=== PATIENT | male | born 1970 | race Caucasian/White ===

== ENCOUNTER 2023-05-29 16:40 | Inpatient (IN) | payer BC ==
[2023-05-29] MEDS ORDERED: KETOROLAC 15 MG/ML 1 ML VIAL IVP STA (19:51)
[2023-05-29] MEDS ORDERED: SODIUM CHLORIDE 0.9% 1,000 ML IV STA (19:51)
[2023-05-29 21:11] LABS: Appearance,Urine Clear (Clear); Bilirubin,Urine Negative (Negative); Blood,Urine Small (Negative); Color,Urine Colorless; Glucose,Urine (UA) 4+ (Negative); Hyaline Casts,Urine 3 /lpf (0-2); Leukocyte Esterase,Urine Negative (Negative); Mucus,Urine Rare /hpf; Nitrite,Urine Negative (Negative); Protein,Urine 1+ (Negative); RBC,Urine 1 /hpf (0-5); Specific Gravity,Urine 1.021 (1.001-1.035); Squamous Epithelial Cell,Urine <1 /hpf (0-4); Urobilinogen,Urine <2.0 mg/dL (<2.0); WBC,Urine 1 /hpf (0-5)
[2023-05-29 21:14] LABS: Ketones,Urine 4+ (Negative)
[2023-05-29 22:02] LABS: Basophils % (A) 0 %; Eosinophils % (A) 0 %; HCT 53.2 % (39.0-53.0); HGB 17.2 gm/dL (13.0-17.5); Lymphocytes # (A) 0.8 k/uL (1.0-4.8); Lymphocytes % (A) 5 %; MCH 30.8 pg (25.0-35.0); MCHC 32.3 g/dL (31.0-37.0); MCV 95.4 fL (80.0-100.0); Monocytes # (A) 0.6 k/uL (0-1.0); Monocytes % (A) 4 %; Neutrophils # (A) 12.5 k/uL (1.3-7.7); Neutrophils % (A) 90 %; Platelet Count 374 k/uL (150-450); RBC 5.58 m/uL (4.30-5.90); RDW 13.4 % (11.5-15.5); WBC 13.9 k/uL (3.8-10.6)
[2023-05-29 22:24] LABS: ALT 17 U/L (4-49); AST 21 U/L (17-59); African American GFR (CKD) >90 (>60 ml/min/1.73 sqM); Albumin 4.4 g/dL (3.5-5.0); Alkaline Phosphatase 66 U/L (38-126); Amylase 51 U/L (30-110); Blood Urea Nitrogen 18 mg/dL (9-20); Calcium 8.9 mg/dL (8.4-10.2); Chloride 107 mmol/L (98-107); Glucose 144 mg/dL (74-99); Lipase 211 U/L (23-300); Non-African American GFR(CKD) 84 (>60 ml/min/1.73 sqM); Potassium 4.9 mmol/L (3.5-5.1); Sodium 135 mmol/L (137-145); Total Bilirubin 0.8 mg/dL (0.2-1.3); Total Protein 7.5 g/dL (6.3-8.2)
[2023-05-29 23:05] LABS: Carbon Dioxide <5 mmol/L (22-30)
[2023-05-29] MEDS ORDERED: SODIUM CHLORIDE 0.9% 2,000 ML IV STA (23:20)
[2023-05-29] MEDS ORDERED: SODIUM BICARB 8.4% 50 ML SYR (1 MEQ/ML) IV STA ×2 (23:22)
[2023-05-29] MEDS ORDERED: LORazepam 2 MG/ML INJ IV STA (23:48)
--- NOTE | 2023-05-30 00:11 | ED ---
Abdominal Pain HPI - General Source: patient Mode of arrival: ambulatory Limitations: no limitations <Hayley Law - Last Filed: 05/30/23 03:56> - History of Present Illness MD Complaint: abdominal pain -: days(s) Location: epigastric, suprapubic Radiation: epigastric, suprapubic Severity: severe Severity scale (1-10): 10 Consistency: constant Improves With: nothing Worsens With: nothing Associated Symptoms: nausea, vomiting, diarrhea, chills Treatments Prior to Arrival: other (0) <Damir Mcgarry - Last Filed: 05/31/23 21:22> - General Chief Complaint: Abdominal Pain Stated Complaint: poss Block intestine Time Seen by Provider: 05/29/23 19:22 - History of Present Illness Initial Comments: 53-year-old male with history of type 2 diabetes presenting with chief complaint of abdominal pain. Patient reports lower abdominal cramping pain. He states that this pain has been present for the last 2 months. Patient is concerned because he has not had a bowel movement in 5 days. He was sent by his PCP for concerns for bowel obstruction. Patient states that he was previously vomiting but has not recently been vomiting. No fevers. Admits to chills. No dysuria or hematuria. No chest pain or difficulty breathing (Hayley Law) 53 male to the emergency for evaluation of diabetes recent nausea vomiting, weakness. Also had some abdominal pain and concern for bowel obstruction. (Damir Mcgarry) - Related Data Home Medications Medication Instructions Recorded Confirmed Atorvastatin [Lipitor] 40 mg PO DAILY 05/30/23 05/30/23 Dulaglutide [Trulicity] 3 mg SQ SA 05/30/23 05/30/23 Ergocalciferol (Vitamin D2) 1,250 mcg PO SA 05/30/23 05/30/23 [Drisdol (50,000 Iu)] Ertugliflozin Pidolate [Steglatro] 5 mg PO DAILY 05/30/23 05/30/23 Omeprazole [PriLOSEC] 20 mg PO DAILY PRN 05/30/23 05/30/23 Ondansetron Odt [Zofran Odt] 4 mg PO Q6H PRN 05/30/23 05/30/23 Pioglitazone HCl 30 mg PO DAILY 05/30/23 05/30/23 amLODIPine [Norvasc] 10 mg PO DAILY 05/30/23 05/30/23 hydroCHLOROthiazide [Hydrodiuril] 12.5 mg PO DAILY 05/30/23 05/30/23 metFORMIN HCL 1,000 mg PO BID 05/30/23 05/30/23 Allergies Allergy/AdvReac Type Severity Reaction Status Date / Time No Known Allergies Allergy Verified 05/30/23 11:36 Review of Systems ROS Other: All systems not noted in ROS Statement are negative. <Hayley Law - Last Filed: 05/30/23 03:56> ROS Other: All systems not noted in ROS Statement are negative. <Damir Mcgarry - Last Filed: 05/31/23 21:22> ROS Statement: Those systems with pertinent positive or pertinent negative responses have been documented in the HPI. Past Medical History Past Medical History: Diabetes Mellitus History of Any Multi-Drug Resistant Organisms: None Reported Past Surgical History: Hernia Repair Additional Past Surgical History / Comment(s): Kidney, Past Psychological History: No Psychological Hx Reported Smoking Status: Never smoker Past Alcohol Use History: Occasional Past Drug Use History: Marijuana <Hayley Law - Last Filed: 05/30/23 03:56> General Exam Limitations: no limitations General appearance: alert, in no apparent distress Head exam: Present: atraumatic, normocephalic, normal inspection Eye exam: Present: normal appearance, EOMI Neck exam: Present: normal inspection, full ROM Respiratory exam: Present: normal lung sounds bilaterally. Absent: respiratory distress, wheezes, rales, rhonchi, stridor Cardiovascular Exam: Present: regular rate, normal rhythm, normal heart sounds. Absent: systolic murmur, diastolic murmur, rubs, gallop, clicks GI/Abdominal exam: Present: soft, tenderness. Absent: distended, guarding, rebound, rigid Neurological exam: Present: alert, oriented X3 Psychiatric exam: Present: normal affect, normal mood Skin exam: Present: warm, dry, intact, normal color. Absent: rash <Hayley Law - Last Filed: 05/30/23 03:56> General appearance: alert, in no apparent distress, anxious, lethargic, in distress Head exam: Present: atraumatic, normocephalic, normal inspection Eye exam: Present: normal appearance, PERRL, EOMI. Absent: scleral icterus, conjunctival injection, periorbital swelling ENT exam: Present: normal exam, mucous membranes dry Neck exam: Present: normal inspection. Absent: tenderness, meningismus, lymphadenopathy Respiratory exam: Present: normal lung sounds bilaterally. Absent: respiratory distress, wheezes, rales, rhonchi, stridor Cardiovascular Exam: Present: normal rhythm, tachycardia, normal heart sounds. Absent: systolic murmur, diastolic murmur, rubs, gallop, clicks GI/Abdominal exam: Present: soft, normal bowel sounds. Absent: distended, tenderness, guarding, rebound, rigid Extremities exam: Present: normal inspection, full ROM, normal capillary refill. Absent: tenderness, pedal edema, joint swelling, calf tenderness Back exam: Present: normal inspection Neurological exam: Present: alert, altered, oriented X3, CN II-XII intact Psychiatric exam: Present: normal affect, normal mood Skin exam: Present: warm, dry, intact, normal color. Absent: rash <Damir Mcgarry - Last Filed: 05/31/23 21:22> Course <Damir Mcgarry - Last Filed: 05/31/23 21:22> Vital Signs 05/29/23 05/29/23 05/30/23 17:06 22:14 06:23 Temperature 98.6 F 98.8 F Pulse Rate 121 H 101 H 95 Respiratory 22 18 18 Rate Blood Pressure 131/78 143/88 143/88 O2 Sat by Pulse 99 97 98 Oximetry 05/30/23 05/30/23 07:21 17:30 Temperature 98.2 F Pulse Rate 100 88 Respiratory 18 18 Rate Blood Pressure 124/84 139/82 O2 Sat by Pulse 97 97 Oximetry - Reevaluation(s) Reevaluation #1: Records reviewed (Damir Mcgarry) Reevaluation #2: Patient still remains short of breath, weak without much improvement (Damir Mcgarry) Reevaluation #3: Patient informed results questions answered (Damir Mcgarry) Reevaluation #4: Differential Weakness: Hypoglycemia, shock, sepsis, hyponatremia, anemia, infection, IA, ETOH, adverse medicine reaction, overdose, stroke, this is not meant to be an all-inclusive list. Differential Dyspnea: Coronary syndrome, arrhythmia, tamponade, asthma, COPD, pulmonary embolism, pneumonia, pneumothorax, pulmonary effusion, anaphylaxis, diabetic ketoacidosis, flailed chest, pulmonary contusion, diaphragmatic rupture, anemia, neuromuscular, this is not meant to be an all-inclusive list. Differential Altered Mental Status: Hypoglycemia, DKA, hypercapnia, ETOH, overdose, CO poisoning, trauma, myxedema coma, HTN encephalopathy, infection, encephalitis, psychosis, intercranial hemorrhage, hepatic encephalopathy, meningitis, CVA, this is not meant to be an all-inclusive list (Damir Mcgarry) Medical Decision Making - Lab Data Result diagrams: 05/29/23 19:50 05/29/23 19:50 <Hayley Law - Last Filed: 05/30/23 03:56> - Lab Data Result diagrams: 05/31/23 03:37 05/31/23 09:47 - Radiology Data Radiology results: report reviewed (CT of the abdomen and pelvis is negative for significant acute disease), image reviewed <Damir Mcgarry - Last Filed: 05/31/23 21:22> - Medical Decision Making Was pt. sent in by a medical professional or institution (, PA, LINEMAN APPRENTICE, urgent care, hospital, or senior care...) When possible be specific @ -No Did you speak to anyone other than the patient for history (EMS, parent, family, police, friend...)? What history was obtained from this source @ -No Did you review nursing and triage notes (agree or disagree)? Why? @ -I reviewed and agree with nursing and triage notes Were old charts reviewed (outside hosp., previous admission, EMS record, old EKG, old radiological studies, urgent care reports/EKG's, senior care records)? Report findings @ -No old charts were reviewed Differential Diagnosis (chest pain, altered mental status, abdominal pain women, abdominal pain men, vaginal bleeding, weakness, fever, dyspnea, syncope, headache, dizziness, GI bleed, back pain, seizure, CVA, palpatations, mental health, musculoskeletal)? @ -MDM Differential Abdominal Pain Men: Appendicitis, cholecystitis, diverticulosis, ischemic bowel, pancreatitis, hepatitis, UTI, gastroenteritis, AAA, incarcerated hernia, bowel obstruction, constipation, inflammatory bowel, hepatitis, peptic ulcer disease, splenic infarction, perforated viscus, testicular torsion... This is not meant to be an all-inclusive list EKG interpreted by me (3pts min.). @ -As above X-rays interpreted by me (1pt min.). @ -None done CT interpreted by me (1pt min.). @ -Mild right hydronephrosis secondary to a nonobstructing ureteral calculus. Nonobstructing distal left ureteral calculus with left-sided hydronephrosis. Fatty infiltration of the liver. U/S interpreted by me (1pt. min.). @ -None done What testing was considered but not performed or refused? (CT, X-rays, U/S, labs)? Why? @ -None What meds were considered but not given or refused? Why? @ -None Did you discuss the management of the patient with other professionals (professionals i.e. , PA, LINEMAN APPRENTICE, lab, RT, psych nurse, social worker assistant, manager ems, teacher, coastal/harbor defense officer, bilingual case manager)? Give summary @ -No Was smoking cessation discussed for >3mins.? @ -No Was critical care preformed (if so, how long)? @ -No Were there social determinants of health that impacted care today? How? (Homelessness, low income, unemployed, alcoholism, drug addiction, tra nsportation, low edu. Level, literacy, decrease access to med. care, halfway, rehab)? @ -No Was there de-escalation of care discussed even if they declined (Discuss DNR or withdrawal of care, Hospice)? DNR status @ -No What co-morbidities impacted this encounter? (DM, HTN, Smoking, COPD, CAD, Cancer, CVA, ARF, Chemo, Hep., AIDS, mental health diagnosis, sleep apnea, morbid obesity)? @ -Diabetes Was patient admitted / discharged? Hospital course, mention meds given and route, prescriptions, significant lab abnormalities, going to OR and other pertinent info. @ -53-year-old male presenting with chief complaint of lower abdominal pain, reports he has not had a bowel movement in a few days and his PCP is concerned for bowel obstruction. Patient tells me he has had lower abdominal pain for the last 2 months along with extreme fatigue. Physical examination is conducted. WBC 13.9. Patient is in metabolic acidosis with respiratory alkalosis. Carbon dioxide less than 5. Lactic acid 2.5. PH 7.23 pCO2 14 HCO3 6. Patient is treated with IV fluids and 100meq of bicarb. Urine shows 4+ glucose and 4+ ketones. Negative for salicylates, acetaminophen, and serum alcohol. Osmolality is WNL. Likely due to a combination of DKA, dehydration, alcohol. Labs are being redrawn. Patient is signed out to my attending Dr. Mcgarry for further management and disposition (Hayley Law) - Lab Data Lab Results 05/29/23 05/29/23 05/29/23 Range/Units 19:50 19:50 19:50 WBC 13.9 H (3.8-10.6) k/uL RBC 5.58 (4.30-5.90) m/uL Hgb 17.2 (13.0-17.5) gm/dL Hct 53.2 H (39.0-53.0) % MCV 95.4 (80.0-100.0) fL MCH 30.8 (25.0-35.0) pg MCHC 32.3 (31.0-37.0) g/dL RDW 13.4 (11.5-15.5) % Plt Count 374 (150-450) k/uL MPV 7.0 Neutrophils % 90 % Lymphocytes % 5 % Monocytes % 4 % Eosinophils % 0 % Basophils % 0 % Neutrophils # 12.5 H (1.3-7.7) k/uL Lymphocytes # 0.8 L (1.0-4.8) k/uL Monocytes # 0.6 (0-1.0) k/uL Eosinophils # 0.0 (0-0.7) k/uL Basophils # 0.0 (0-0.2) k/uL VBG pH (7.31-7.41) VBG pCO2 (37-51) mmHg VBG HCO3 (24-28) mmol/L Sodium 135 L (137-145) mmol/L Potassium 4.9 (3.5-5.1) mmol/L Chloride 107 (98-107) mmol/L Carbon Dioxide <5 L* (22-30) mmol/L Anion Gap mmol/L BUN 18 (9-20) mg/dL Creatinine 1.02 (0.66-1.25) mg/dL Est GFR (CKD-EPI)AfAm >90 (>60 ml/min/1.73 sqM) Est GFR (CKD-EPI)NonAf 84 (>60 ml/min/1.73 sqM) Glucose 144 H (74-99) mg/dL Osmolality (280-301) mosm/kg Lactic Ac Sepsis Rflx Plasma Lactic Acid Alec 2.5 H* (0.7-2.0) mmol/L Calcium 8.9 (8.4-10.2) mg/dL Phosphorus (2.5-4.5) mg/dL Magnesium (1.6-2.3) mg/dL Total Bilirubin 0.8 (0.2-1.3) mg/dL AST 21 (17-59) U/L ALT 17 (4-49) U/L Alkaline Phosphatase 66 (38-126) U/L Total Protein 7.5 (6.3-8.2) g/dL Albumin 4.4 (3.5-5.0) g/dL Amylase 51 (30-110) U/L Lipase 211 (23-300) U/L Urine Color Urine Appearance (Clear) Urine pH (5.0-8.0) Ur Specific [place] (1.001-1.035) Urine Protein (Negative) Urine Glucose (UA) (Negative) Urine Ketones (Negative) Urine Blood (Negative) Urine Nitrite (Negative) Urine Bilirubin (Negative) Urine Urobilinogen (<2.0) mg/dL Ur Leukocyte Esterase (Negative) Urine RBC (0-5) /hpf Urine WBC (0-5) /hpf Ur Squamous Epith Cells (0-4) /hpf Hyaline Casts (0-2) /lpf Urine Mucus (None) /hpf Salicylates mg/dL Acetaminophen ug/mL Serum Alcohol mg/dL 05/29/23 05/29/23 05/30/23 Range/Units 20:30 23:17 01:06 WBC (3.8-10.6) k/uL RBC (4.30-5.90) m/uL Hgb (13.0-17.5) gm/dL Hct (39.0-53.0) % MCV (80.0-100.0) fL MCH (25.0-35.0) pg MCHC (31.0-37.0) g/dL RDW (11.5-15.5) % Plt Count (150-450) k/uL MPV Neutrophils % % Lymphocytes % % Monocytes % % Eosinophils % % Basophils % % Neutrophils # (1.3-7.7) k/uL Lymphocytes # (1.0-4.8) k/uL Monocytes # (0-1.0) k/uL Eosinophils # (0-0.7) k/uL Basophils # (0-0.2) k/uL VBG pH (7.31-7.41) VBG pCO2 (37-51) mmHg VBG HCO3 (24-28) mmol/L Sodium (137-145) mmol/L Potassium (3.5-5.1) mmol/L Chloride (98-107) mmol/L Carbon Dioxide (22-30) mmol/L Anion Gap mmol/L BUN (9-20) mg/dL Creatinine (0.66-1.25) mg/dL Est GFR (CKD-EPI)AfAm (>60 ml/min/1.73 sqM) Est GFR (CKD-EPI)NonAf (>60 ml/min/1.73 sqM) Glucose (74-99) mg/dL Osmolality 294 (280-301) mosm/kg Lactic Ac Sepsis Rflx Y Plasma Lactic Acid Alec (0.7-2.0) mmol/L Calcium (8.4-10.2) mg/dL Phosphorus 2.6 (2.5-4.5) mg/dL Magnesium 1.9 (1.6-2.3) mg/dL Total Bilirubin (0.2-1.3) mg/dL AST (17-59) U/L ALT (4-49) U/L Alkaline Phosphatase (38-126) U/L Total Protein (6.3-8.2) g/dL Albumin (3.5-5.0) g/dL Amylase (30-110) U/L Lipase (23-300) U/L Urine Color Colorless Urine Appearance Clear (Clear) Urine pH 5.0 (5.0-8.0) Ur Specific [place] 1.021 (1.001-1.035) Urine Protein 1+ H (Negative) Urine Glucose (UA) 4+ H (Negative) Urine Ketones 4+ H (Negative) Urine Blood Small H (Negative) Urine Nitrite Negative (Negative) Urine Bilirubin Negative (Negative) Urine Urobilinogen <2.0 (<2.0) mg/dL Ur Leukocyte Esterase Negative (Negative) Urine RBC 1 (0-5) /hpf Urine WBC 1 (0-5) /hpf Ur Squamous Epith Cells <1 (0-4) /hpf Hyaline Casts 3 H (0-2) /lpf Urine Mucus Rare H (None) /hpf Salicylates <1.0 mg/dL Acetaminophen <10.0 ug/mL Serum Alcohol <10 mg/dL 05/30/23 05/30/23 05/30/23 Range/Units 01:06 01:42 04:55 WBC 14.8 H (3.8-10.6) k/uL RBC 5.14 (4.30-5.90) m/uL Hgb 15.7 (13.0-17.5) gm/dL Hct 49.0 (39.0-53.0) % MCV 95.3 (80.0-100.0) fL MCH 30.6 (25.0-35.0) pg MCHC 32.2 (31.0-37.0) g/dL RDW 13.4 (11.5-15.5) % Plt Count 383 (150-450) k/uL MPV 7.5 Neutrophils % 72 % Lymphocytes % 17 % Monocytes % 8 % Eosinophils % 0 % Basophils % 0 % Neutrophils # 10.7 H (1.3-7.7) k/uL Lymphocytes # 2.5 (1.0-4.8) k/uL Monocytes # 1.2 H (0-1.0) k/uL Eosinophils # 0.0 (0-0.7) k/uL Basophils # 0.0 (0-0.2) k/uL VBG pH 7.23 L (7.31-7.41) VBG pCO2 14 L* (37-51) mmHg VBG HCO3 6 L* (24-28) mmol/L Sodium (137-145) mmol/L Potassium (3.5-5.1) mmol/L Chloride (98-107) mmol/L Carbon Dioxide (22-30) mmol/L Anion Gap mmol/L BUN (9-20) mg/dL Creatinine (0.66-1.25) mg/dL Est GFR (CKD-EPI)AfAm (>60 ml/min/1.73 sqM) Est GFR (CKD-EPI)NonAf (>60 ml/min/1.73 sqM) Glucose (74-99) mg/dL Osmolality (280-301) mosm/kg Lactic Ac Sepsis Rflx Plasma Lactic Acid Alec 1.2 (0.7-2.0) mmol/L Calcium (8.4-10.2) mg/dL Phosphorus (2.5-4.5) mg/dL Magnesium (1.6-2.3) mg/dL Total Bilirubin (0.2-1.3) mg/dL AST (17-59) U/L ALT (4-49) U/L Alkaline Phosphatase (38-126) U/L Total Protein (6.3-8.2) g/dL Albumin (3.5-5.0) g/dL Amylase (30-110) U/L Lipase (23-300) U/L Urine Color Urine Appearance (Clear) Urine pH (5.0-8.0) Ur Specific [place] (1.001-1.035) Urine Protein (Negative) Urine Glucose (UA) (Negative) Urine Ketones (Negative) Urine Blood (Negative) Urine Nitrite (Negative) Urine Bilirubin (Negative) Urine Urobilinogen (<2.0) mg/dL Ur Leukocyte Esterase (Negative) Urine RBC (0-5) /hpf Urine WBC (0-5) /hpf Ur Squamous Epith Cells (0-4) /hpf Hyaline Casts (0-2) /lpf Urine Mucus (None) /hpf Salicylates mg/dL Acetaminophen ug/mL Serum Alcohol mg/dL 05/30/23 Range/Units 04:55 WBC (3.8-10.6) k/uL RBC (4.30-5.90) m/uL Hgb (13.0-17.5) gm/dL Hct (39.0-53.0) % MCV (80.0-100.0) fL MCH (25.0-35.0) pg MCHC (31.0-37.0) g/dL RDW (11.5-15.5) % Plt Count (150-450) k/uL MPV Neutrophils % % Lymphocytes % % Monocytes % % Eosinophils % % Basophils % % Neutrophils # (1.3-7.7) k/uL Lymphocytes # (1.0-4.8) k/uL Monocytes # (0-1.0) k/uL Eosinophils # (0-0.7) k/uL Basophils # (0-0.2) k/uL VBG pH (7.31-7.41) VBG pCO2 (37-51) mmHg VBG HCO3 (24-28) mmol/L Sodium 134 L (137-145) mmol/L Potassium 3.9 (3.5-5.1) mmol/L Chloride 109 H (98-107) mmol/L Carbon Dioxide 7 L* (22-30) mmol/L Anion Gap 18 mmol/L BUN 16 (9-20) mg/dL Creatinine 0.78 (0.66-1.25) mg/dL Est GFR (CKD-EPI)AfAm >90 (>60 ml/min/1.73 sqM) Est GFR (CKD-EPI)NonAf >90 (>60 ml/min/1.73 sqM) Glucose 105 H (74-99) mg/dL Osmolality (280-301) mosm/kg Lactic Ac Sepsis Rflx Plasma Lactic Acid Alec (0.7-2.0) mmol/L Calcium 8.3 L (8.4-10.2) mg/dL Phosphorus (2.5-4.5) mg/dL Magnesium (1.6-2.3) mg/dL Total Bilirubin 0.8 (0.2-1.3) mg/dL AST 18 (17-59) U/L ALT 15 (4-49) U/L Alkaline Phosphatase 60 (38-126) U/L Total Protein 6.2 L (6.3-8.2) g/dL Albumin 3.5 (3.5-5.0) g/dL Amylase (30-110) U/L Lipase (23-300) U/L Urine Color Urine Appearance (Clear) Urine pH (5.0-8.0) Ur Specific [place] (1.001-1.035) Urine Protein (Negative) Urine Glucose (UA) (Negative) Urine Ketones (Negative) Urine Blood (Negative) Urine Nitrite (Negative) Urine Bilirubin (Negative) Urine Urobilinogen (<2.0) mg/dL Ur Leukocyte Esterase (Negative) Urine RBC (0-5) /hpf Urine WBC (0-5) /hpf Ur Squamous Epith Cells (0-4) /hpf Hyaline Casts (0-2) /lpf Urine Mucus (None) /hpf Salicylates mg/dL Acetaminophen ug/mL Serum Alcohol mg/dL Critical Care Time Critical Care Time: Yes Total Critical Care Time: 31 <Damir Mcgarry - Last Filed: 05/31/23 21:22> Disposition <Hayley Law - Last Filed: 05/30/23 03:56> Is patient prescribed a controlled substance at d/c from ED?: No Time of Disposition: 05:50 <Damir Mcgarry - Last Filed: 05/31/23 21:22> Clinical Impression: Abdominal pain, Weakness, Diabetes, Lactic acidosis, High anion gap metabolic acidosis, Nausea & vomiting, DKA (diabetic ketoacidosis), Hydronephrosis, right Disposition: ADMITTED IP TO THIS HOSP Condition: Serious
--- NOTE | 2023-05-30 01:08 | CT ---
EXAM: CT Abdomen and Pelvis With Intravenous Contrast CLINICAL HISTORY: ITS.REASON CT Reason: abdominal pain TECHNIQUE: Axial computed tomography images of the abdomen and pelvis with intravenous contrast. CTDI is 21.17 mGy and DLP is 1109.5 mGy-cm. This CT exam was performed using one or more of the following dose reduction techniques: automated exposure control, adjustment of the mA and/or kV according to patient size, and/or use of iterative reconstruction technique. COMPARISON: No relevant prior studies available. FINDINGS: Lung bases: Unremarkable. No mass. No consolidation. ABDOMEN: Liver: Fatty infiltration of liver. Gallbladder and bile ducts: Unremarkable. No calcified stones. No ductal dilation. Pancreas: Unremarkable. No mass. No ductal dilation. Spleen: Unremarkable. No splenomegaly. Adrenals: Unremarkable. No mass. Kidneys and ureters: nonobstructing 2 mm distal left ureteral calculus without evidence significant hydronephrosis. Mild right hydronephrosis. There may be 2 mm nonobstructing distal right ureteral calculus and has already passed into the urinary bladder. Stomach and bowel: Unremarkable. No obstruction. No mucosal thickening. PELVIS: Appendix: No findings to suggest acute appendicitis. Bladder: Unremarkable. No mass. Reproductive: Unremarkable as visualized. ABDOMEN and PELVIS: Intraperitoneal space: Unremarkable. No free air. No significant fluid collection. Bones/joints: No acute fracture. No dislocation. Soft tissues: Unremarkable. Vasculature: Unremarkable. No abdominal aortic aneurysm. Lymph nodes: Unremarkable. No enlarged lymph nodes. IMPRESSION: Mild right hydronephrosis secondary to a already ureteral calculus. Nonobstructing distal left ureteral calculus without left-sided hydronephrosis Fatty infiltration of the liver
[2023-05-30 01:42] LABS: VBG PH 7.23 (7.31-7.41)
[2023-05-30 01:52] LABS: Acetaminophen <10.0 ug/mL; Alcohol <10 mg/dL; Magnesium 1.9 mg/dL (1.6-2.3); Phosphorus 2.6 mg/dL (2.5-4.5); Salicylate <1.0 mg/dL
[2023-05-30 05:16] LABS: Basophils % (A) 0 %; Eosinophils % (A) 0 %; HGB 15.7 gm/dL (13.0-17.5); Lymphocytes # (A) 2.5 k/uL (1.0-4.8); Lymphocytes % (A) 17 %; MCH 30.6 pg (25.0-35.0); MCHC 32.2 g/dL (31.0-37.0); MCV 95.3 fL (80.0-100.0); Mean Platelet Volume 7.5; Monocytes # (A) 1.2 k/uL (0-1.0); Monocytes % (A) 8 %; Neutrophils # (A) 10.7 k/uL (1.3-7.7); Neutrophils % (A) 72 %; Platelet Count 383 k/uL (150-450); RBC 5.14 m/uL (4.30-5.90); RDW 13.4 % (11.5-15.5); WBC 14.8 k/uL (3.8-10.6)
[2023-05-30 05:26] LABS: ALT 15 U/L (4-49); AST 18 U/L (17-59); African American GFR (CKD) >90 (>60 ml/min/1.73 sqM); Albumin 3.5 g/dL (3.5-5.0); Alkaline Phosphatase 60 U/L (38-126); Anion Gap 18 mmol/L; Blood Urea Nitrogen 16 mg/dL (9-20); Calcium 8.3 mg/dL (8.4-10.2); Chloride 109 mmol/L (98-107); Glucose 105 mg/dL (74-99); Non-African American GFR(CKD) >90 (>60 ml/min/1.73 sqM); Potassium 3.9 mmol/L (3.5-5.1); Sodium 134 mmol/L (137-145); Total Bilirubin 0.8 mg/dL (0.2-1.3); Total Protein 6.2 g/dL (6.3-8.2)
[2023-05-30 05:27] LABS: Carbon Dioxide 7 mmol/L (22-30)
[2023-05-30] MEDS ORDERED: POTASSIUM CHLORIDE ER 20 MEQ TAB.ER PO STA (05:36)
--- NOTE | 2023-05-30 05:38 | P.HPIM ---
History of Present Illness H&P Date: 05/30/23 Patient is a 53-year-old male with a PMH of type II DM on Trulicity who presents to the emergency room with complaints of abdominal pain, anorexia, and generalized weakness. Patient reports that over the past few months, he has been experiencing intermittent mild abdominal discomfort along with poor appetite. He reports that his symptoms worsened this past when he is began feeling ill shortly after he used his Trulicity injection on Thursday. He developed a mild diffuse abdominal discomfort with poor appetite and had no energy. He also had constipation with his last bowel movement this past Thursday. He reports minimal oral intake over the last one week, for which she was eventually seen at his PCPs office earlier today where they did abdominal x-rays concerning for bowel obstruction. The patient was advised to go to the emergency room. He reported feeling somewhat better at the time of interview. Denied experiencing nausea, vomiting, fever, chills, cough. Also denied chest pain, shortness of breath. Patient denied alcohol use. In the emergency room, CT abdomen and pelvis revealed a mild right hydronephrosis secondary to ureteral calculus with fatty infiltration of the liver. Laboratory evaluation was remarkable for leukocytosis of 14.8, VBG pH 7.23, pCO2 14, HCO3 6, sodium 135, potassium 4.9, Toradol 07, CO2 less than 5, glucose 144, lactic acid 2.5, UA showing 4+ ketones with 4+ glucose. ED documentation reviewed and case discussed with ED provider. Review of systems: Pertinent positives and negatives as discussed in HPI, a complete review of systems was performed and all other systems are negative. Physical examination: Vital signs reviewed General: Somewhat ill-appearing male, no distress, appears at stated age, normal weight Derm: no unusual rashes/lesions, warm Head: atraumatic, normocephalic, symmetric Eyes: EOMI, no lid lag, anicteric sclera, pupils equal round reactive to light ENT: Nose and ears atraumatic Neck: No cervical lymphadenopathy, trachea midline, supple Mouth: no lip lesion, mucus membranes moist Cardiovascular: S1S2 reg, no murmur, positive dorsalis pedis pulse bilateral, no edema Lungs: CTA bilateral, no rhonchi, no rales, no accessory muscle use Abdominal: Mildly distended, nontender to palpation, no guarding Ext: muscle strength 4 out of 5 in all 4 extremities grossly, no gross muscle atrophy, no contractures, Neuro: CN II-XI grossly intact, no gross focal neuro deficits Psych: Alert, oriented, appropriate affect Assessment: Severe metabolic acidosis, likely combination of starvation and DKA Abdominal pain and anorexia, suspect side effects from Trulicity Leukocytosis, likely secondary to acute stressor Imaging: In the emergency room, CT abdomen and pelvis revealed a mild right hydronephrosis secondary to ureteral calculus with fatty infiltration of the liver. Data Review: Laboratory evaluation was remarkable for leukocytosis of 14.8, VBG pH 7.23, pCO2 14, HCO3 6, sodium 135, potassium 4.9, Toradol 07, CO2 less than 5, glucose 144, lactic acid 2.5, UA showing 4+ ketones with 4+ glucose. Plan: C/w IVFs NS 150 mL/hr NPO for now Blood glucose 105 at this time. Insulin sliding scale and blood glucose monitoring Monitor electrolytes Hold home trulicity at this time DVT prophylaxis: Heparin subq The patient is admitted with an anticipated greater than 2 midnight stay for evaluation of acidosis CODE STATUS: Full Code Discussed with: Patient Anticipated discharge place: Home Past Medical History Past Medical History: Diabetes Mellitus History of Any Multi-Drug Resistant Organisms: None Reported Past Surgical History: Hernia Repair Additional Past Surgical History / Comment(s): Kidney, Past Psychological History: No Psychological Hx Reported Smoking Status: Never smoker Past Alcohol Use History: Occasional Past Drug Use History: Marijuana Medications and Allergies Allergies Allergy/AdvReac Type Severity Reaction Status Date / Time No Known Allergies Allergy Verified 05/29/23 17:08 Physical Exam Vitals: Vital Signs Temp Pulse Resp BP Pulse Ox 05/29/23 22:14 101 H 18 143/88 97 05/29/23 17:06 98.6 F 121 H 22 131/78 99 Intake and Output 05/29/23 05/29/23 05/30/23 14:59 22:59 06:59 Other: Weight 83.915 kg Results CBC & Chem 7: 05/30/23 04:55 05/30/23 04:55 Labs: Abnormal Lab Results - Last 24 Hours (Table) 05/29/23 05/29/23 05/29/23 Range/Units 19:50 19:50 19:50 WBC 13.9 H (3.8-10.6) k/uL Hct 53.2 H (39.0-53.0) % Neutrophils # 12.5 H (1.3-7.7) k/uL Lymphocytes # 0.8 L (1.0-4.8) k/uL Monocytes # (0-1.0) k/uL VBG pH (7.31-7.41) VBG pCO2 (37-51) mmHg VBG HCO3 (24-28) mmol/L Sodium 135 L (137-145) mmol/L Chloride (98-107) mmol/L Carbon Dioxide <5 L* (22-30) mmol/L Glucose 144 H (74-99) mg/dL Plasma Lactic Acid Alec 2.5 H* (0.7-2.0) mmol/L Calcium (8.4-10.2) mg/dL Total Protein (6.3-8.2) g/dL Urine Protein (Negative) Urine Glucose (UA) (Negative) Urine Ketones (Negative) Urine Blood (Negative) Hyaline Casts (0-2) /lpf Urine Mucus (None) /hpf 05/29/23 05/30/23 05/30/23 Range/Units 20:30 01:06 04:55 WBC 14.8 H (3.8-10.6) k/uL Hct (39.0-53.0) % Neutrophils # 10.7 H (1.3-7.7) k/uL Lymphocytes # (1.0-4.8) k/uL Monocytes # 1.2 H (0-1.0) k/uL VBG pH 7.23 L (7.31-7.41) VBG pCO2 14 L* (37-51) mmHg VBG HCO3 6 L* (24-28) mmol/L Sodium (137-145) mmol/L Chloride (98-107) mmol/L Carbon Dioxide (22-30) mmol/L Glucose (74-99) mg/dL Plasma Lactic Acid Alec (0.7-2.0) mmol/L Calcium (8.4-10.2) mg/dL Total Protein (6.3-8.2) g/dL Urine Protein 1+ H (Negative) Urine Glucose (UA) 4+ H (Negative) Urine Ketones 4+ H (Negative) Urine Blood Small H (Negative) Hyaline Casts 3 H (0-2) /lpf Urine Mucus Rare H (None) /hpf 05/30/23 Range/Units 04:55 WBC (3.8-10.6) k/uL Hct (39.0-53.0) % Neutrophils # (1.3-7.7) k/uL Lymphocytes # (1.0-4.8) k/uL Monocytes # (0-1.0) k/uL VBG pH (7.31-7.41) VBG pCO2 (37-51) mmHg VBG HCO3 (24-28) mmol/L Sodium 134 L (137-145) mmol/L Chloride 109 H (98-107) mmol/L Carbon Dioxide 7 L* (22-30) mmol/L Glucose 105 H (74-99) mg/dL Plasma Lactic Acid Alec (0.7-2.0) mmol/L Calcium 8.3 L (8.4-10.2) mg/dL Total Protein 6.2 L (6.3-8.2) g/dL Urine Protein (Negative) Urine Glucose (UA) (Negative) Urine Ketones (Negative) Urine Blood (Negative) Hyaline Casts (0-2) /lpf Urine Mucus (None) /hpf
[2023-05-30] MEDS ORDERED: MORPHINE SULFATE 4 MG/ML SYRINGE IV PRN (05:46)
[2023-05-30] MEDS ORDERED: KETOROLAC 15 MG/ML 1 ML VIAL IVP PRN (05:46)
[2023-05-30] MEDS ORDERED: ONDANSETRON 4 MG/2 ML VIAL IVP PRN (05:46)
[2023-05-30] MEDS ORDERED: NALOXONE 0.4 MG/ML 1 ML VIAL IV PRN (05:46)
[2023-05-30] MEDS ORDERED: SODIUM CHLORIDE 0.9% 1,000 ML IV SCH (06:00)
[2023-05-30] MEDS: SODIUM CHLORIDE 0.9% 1,000 ML IV SCH ×2 (06:11→11:33)
[2023-05-30 06:46] LABS: Appearance,Urine Clear (Clear); Bilirubin,Urine Negative (Negative); Blood,Urine Trace (Negative); Color,Urine Colorless; Glucose,Urine (UA) 4+ (Negative); Leukocyte Esterase,Urine Negative (Negative); Mucus,Urine Rare /hpf; Nitrite,Urine Negative (Negative); PH, Urine 5.5 (5.0-8.0); Protein,Urine Trace (Negative); RBC,Urine 4 /hpf (0-5); Specific Gravity,Urine 1.029 (1.001-1.035); Urobilinogen,Urine <2.0 mg/dL (<2.0); WBC,Urine 1 /hpf (0-5)
[2023-05-30 06:49] LABS: Ketones,Urine 4+ (Negative)
[2023-05-30] MEDS ORDERED: INSULIN ASPART (NovoLOG) 100 UNIT/ML VIAL SQ SCH (07:30)
[2023-05-30 07:51] LABS: Glucose,Whole Blood 89 mg/dL (70-110)
[2023-05-30 08:29] LABS: HGB 15.4 gm/dL (13.0-17.5); MCH 30.7 pg (25.0-35.0); MCHC 32.7 g/dL (31.0-37.0); MCV 93.9 fL (80.0-100.0); Mean Platelet Volume 6.9; Platelet Count 357 k/uL (150-450); RBC 5.01 m/uL (4.30-5.90); RDW 13.4 % (11.5-15.5); WBC 12.5 k/uL (3.8-10.6)
[2023-05-30 08:32] LABS: African American GFR (CKD) >90 (>60 ml/min/1.73 sqM); Blood Urea Nitrogen 16 mg/dL (9-20); Calcium 8.6 mg/dL (8.4-10.2); Chloride 109 mmol/L (98-107); Glucose 100 mg/dL (74-99); Non-African American GFR(CKD) >90 (>60 ml/min/1.73 sqM); Sodium 133 mmol/L (137-145)
[2023-05-30 09:03] LABS: Carbon Dioxide <5 mmol/L (22-30); Potassium 4.6 mmol/L (3.5-5.1)
[2023-05-30] MEDS ORDERED: Potassium Replacement Protocol 1 EACH MISC MISCELLANE PRN (10:58)
[2023-05-30] MEDS ORDERED: Magnesium Replacement Protocol 1 EACH MISC MISCELLANE PRN (10:58)
[2023-05-30] MEDS ORDERED: DEXTROSE 50% SYRINGE 50 ML IVP PRN ×2 (10:58)
[2023-05-30] MEDS: ENOXAPARIN 40 MG/0.4 ML SYRINGE SQ SCH (11:01)
[2023-05-30] MEDS ORDERED: bisacodyL 10 MG SUPP RECTAL PRN (11:07)
[2023-05-30 11:13] LABS: Glucose,Whole Blood 98 mg/dL (70-110)
[2023-05-30 11:15] LABS: ABG Oxygen Saturation 98.8 % (94-97); ABG PH 7.26 (7.35-7.45); ABG PO2 126 mmHg (83-108); Allen Test Performed? Yes
[2023-05-30 11:19] LABS: ABG PCO2 <15 mmHg (35-45)
[2023-05-30] MEDS ORDERED: DEXTROSE 5% IN WATER 1,000 ML with SODIUM BICARB (1 MEQ/ML) 150 ML IV SCH (11:30)
[2023-05-30] MEDS: D5-0.45% NACL WITH KCL 20MEQ/L 1,000 ML IV SCH ×2 (11:34→20:48)
[2023-05-30 12:11] LABS: VBG PH 7.18 (7.31-7.41)
[2023-05-30 12:17] LABS: African American GFR (CKD) >90 (>60 ml/min/1.73 sqM); Alcohol <10 mg/dL; Anion Gap 19 mmol/L; Blood Urea Nitrogen 14 mg/dL (9-20); Chloride 111 mmol/L (98-107); Glucose 108 mg/dL (74-99); Non-African American GFR(CKD) >90 (>60 ml/min/1.73 sqM); Phosphorus 2.7 mg/dL (2.5-4.5); Sodium 136 mmol/L (137-145)
[2023-05-30 12:29] LABS: Carbon Dioxide 6 mmol/L (22-30)
[2023-05-30 12:33] LABS: Glucose,Whole Blood 140 mg/dL (70-110)
[2023-05-30] MEDS: INSULIN REGULAR 100 UNIT in SODIUM CHLORIDE 0.9% 100 ML IV SCH (12:54)
--- NOTE | 2023-05-30 12:56 | P.GSCN ---
History of Present Illness Consult date: 05/30/23 History of present illness: 53 yo male in the er with abdominal pain. He had a ct scan that was read as mild right hydro with a sotne passed into the bladder and a left ureteral stone in the distal ureter non obstructing.the patients cr is normal His urine is clear He has dm. He has been having sp pain for several months. He has had problems with BM for several months. He was in the [facility]. He has never had stoness, uti, hematuria, problems urinating. Per his mother he had right ureteral reflux as a child. His ct scna also shows a lesion in the right kidney, cortical with 80 hu that doesnt enhance. this was identified with a ct [place] also. He hasnt seen anyone for this. Review of Systems All systems: negative - Constitutional Denies fever, Denies weight loss - EENT Eyes: denies blurred vision Ears, nose, mouth and throat: Denies dysphagia - Cardiovascular Denies chest pain, Denies shortness of breath - Respiratory Denies cough, Denies 7 - Gastrointestinal Reports as per HPI - Genitourinary Denies dysuria, Denies hematuria - Integumentary Denies rash, Denies unusual bruising - Neurological Denies headaches, Denies syncope - Hematologic/Lymphatic Denies easy bleeding, Denies easy bruising Past Medical History Past Medical History: Diabetes Mellitus History of Any Multi-Drug Resistant Organisms: None Reported Past Surgical History: Hernia Repair Additional Past Surgical History / Comment(s): Kidney, Past Psychological History: No Psychological Hx Reported Smoking Status: Never smoker Past Alcohol Use History: Occasional Past Drug Use History: Marijuana Medications and Allergies Home Medications Medication Instructions Recorded Confirmed Type Atorvastatin [Lipitor] 40 mg PO DAILY 05/30/23 05/30/23 History Dulaglutide [Trulicity] 3 mg SQ SA 05/30/23 05/30/23 History Ergocalciferol (Vitamin D2) 1,250 mcg PO SA 05/30/23 05/30/23 History [Drisdol (50,000 Iu)] Ertugliflozin Pidolate [Steglatro] 5 mg PO DAILY 05/30/23 05/30/23 History Omeprazole [PriLOSEC] 20 mg PO DAILY PRN 05/30/23 05/30/23 History Ondansetron Odt [Zofran Odt] 4 mg PO Q6H PRN 05/30/23 05/30/23 History Pioglitazone HCl 30 mg PO DAILY 05/30/23 05/30/23 History amLODIPine [Norvasc] 10 mg PO DAILY 05/30/23 05/30/23 History hydroCHLOROthiazide [Hydrodiuril] 12.5 mg PO DAILY 05/30/23 05/30/23 History metFORMIN HCL 1,000 mg PO BID 05/30/23 05/30/23 History Allergies Allergy/AdvReac Type Severity Reaction Status Date / Time No Known Allergies Allergy Verified 05/30/23 11:36 Surgical - Exam Vital Signs Temp Pulse Resp BP Pulse Ox 98.6 F 121 H 22 131/78 99 05/29/23 17:06 05/29/23 17:06 05/29/23 17:06 05/29/23 17:06 05/29/23 17:06 - General mild abdominal distress. well developed, well nourished, no distress - Eyes normal ocular movement, no icteric - ENT no hearing loss, no congestion - Neck no masses, trachea midline - Respiratory normal respiratory effort, clear to auscultation - Abdomen Abdomen: soft, non tender, no guarding, no rigid, no rebound - Integumentary no rash, no abnormal pigmentation - Neurologic no disoriented, no combative - Psychiatric oriented to time, oriented to person, oriented to place, speech is normal, memory intact Results - Labs 05/30/23 08:10 05/30/23 11:46 Abnormal Lab Results - Last 24 Hours (Table) 05/29/23 05/29/23 05/29/23 Range/Units 19:50 19:50 19:50 WBC 13.9 H (3.8-10.6) k/uL Hct 53.2 H (39.0-53.0) % Neutrophils # 12.5 H (1.3-7.7) k/uL Lymphocytes # 0.8 L (1.0-4.8) k/uL Monocytes # (0-1.0) k/uL ABG pH (7.35-7.45) ABG pCO2 (35-45) mmHg ABG pO2 (83-108) mmHg ABG O2 Saturation (94-97) % VBG pH (7.31-7.41) VBG pCO2 (37-51) mmHg VBG HCO3 (24-28) mmol/L Sodium 135 L (137-145) mmol/L Chloride (98-107) mmol/L Carbon Dioxide <5 L* (22-30) mmol/L Glucose 144 H (74-99) mg/dL Plasma Lactic Acid Alec 2.5 H* (0.7-2.0) mmol/L Calcium (8.4-10.2) mg/dL Total Protein (6.3-8.2) g/dL Urine Protein (Negative) Urine Glucose (UA) (Negative) Urine Ketones (Negative) Urine Blood (Negative) Hyaline Casts (0-2) /lpf Urine Mucus (None) /hpf 05/29/23 05/30/23 05/30/23 Range/Units 20:30 01:06 04:55 WBC 14.8 H (3.8-10.6) k/uL Hct (39.0-53.0) % Neutrophils # 10.7 H (1.3-7.7) k/uL Lymphocytes # (1.0-4.8) k/uL Monocytes # 1.2 H (0-1.0) k/uL ABG pH (7.35-7.45) ABG pCO2 (35-45) mmHg ABG pO2 (83-108) mmHg ABG O2 Saturation (94-97) % VBG pH 7.23 L (7.31-7.41) VBG pCO2 14 L* (37-51) mmHg VBG HCO3 6 L* (24-28) mmol/L Sodium (137-145) mmol/L Chloride (98-107) mmol/L Carbon Dioxide (22-30) mmol/L Glucose (74-99) mg/dL Plasma Lactic Acid Alec (0.7-2.0) mmol/L Calcium (8.4-10.2) mg/dL Total Protein (6.3-8.2) g/dL Urine Protein 1+ H (Negative) Urine Glucose (UA) 4+ H (Negative) Urine Ketones 4+ H (Negative) Urine Blood Small H (Negative) Hyaline Casts 3 H (0-2) /lpf Urine Mucus Rare H (None) /hpf 05/30/23 05/30/23 05/30/23 Range/Units 04:55 06:23 08:10 WBC 12.5 H (3.8-10.6) k/uL Hct (39.0-53.0) % Neutrophils # (1.3-7.7) k/uL Lymphocytes # (1.0-4.8) k/uL Monocytes # (0-1.0) k/uL ABG pH (7.35-7.45) ABG pCO2 (35-45) mmHg ABG pO2 (83-108) mmHg ABG O2 Saturation (94-97) % VBG pH (7.31-7.41) VBG pCO2 (37-51) mmHg VBG HCO3 (24-28) mmol/L Sodium 134 L (137-145) mmol/L Chloride 109 H (98-107) mmol/L Carbon Dioxide 7 L* (22-30) mmol/L Glucose 105 H (74-99) mg/dL Plasma Lactic Acid Alec (0.7-2.0) mmol/L Calcium 8.3 L (8.4-10.2) mg/dL Total Protein 6.2 L (6.3-8.2) g/dL Urine Protein Trace H (Negative) Urine Glucose (UA) 4+ H (Negative) Urine Ketones 4+ H (Negative) Urine Blood Trace H (Negative) Hyaline Casts (0-2) /lpf Urine Mucus Rare H (None) /hpf 05/30/23 05/30/23 05/30/23 Range/Units 08:10 11:13 11:46 WBC (3.8-10.6) k/uL Hct (39.0-53.0) % Neutrophils # (1.3-7.7) k/uL Lymphocytes # (1.0-4.8) k/uL Monocytes # (0-1.0) k/uL ABG pH 7.26 L (7.35-7.45) ABG pCO2 <15 L* (35-45) mmHg ABG pO2 126 H (83-108) mmHg ABG O2 Saturation 98.8 H (94-97) % VBG pH 7.18 L* (7.31-7.41) VBG pCO2 21 L (37-51) mmHg VBG HCO3 8 L* (24-28) mmol/L Sodium 133 L (137-145) mmol/L Chloride 109 H (98-107) mmol/L Carbon Dioxide <5 L* (22-30) mmol/L Glucose 100 H (74-99) mg/dL Plasma Lactic Acid Alec (0.7-2.0) mmol/L Calcium (8.4-10.2) mg/dL Total Protein (6.3-8.2) g/dL Urine Protein (Negative) Urine Glucose (UA) (Negative) Urine Ketones (Negative) Urine Blood (Negative) Hyaline Casts (0-2) /lpf Urine Mucus (None) /hpf Diabetes panel 05/29/23 05/30/23 05/30/23 Range/Units 19:50 04:55 08:10 Sodium 135 L 134 L 133 L (137-145) mmol/L Potassium 4.9 3.9 4.6 (3.5-5.1) mmol/L Chloride 107 109 H 109 H (98-107) mmol/L Carbon Dioxide <5 L* 7 L* <5 L* (22-30) mmol/L BUN 18 16 16 (9-20) mg/dL Creatinine 1.02 0.78 0.71 (0.66-1.25) mg/dL Glucose 144 H 105 H 100 H (74-99) mg/dL Calcium 8.9 8.3 L 8.6 (8.4-10.2) mg/dL AST 21 18 (17-59) U/L ALT 17 15 (4-49) U/L Alkaline Phosphatase 66 60 (38-126) U/L Total Protein 7.5 6.2 L (6.3-8.2) g/dL Albumin 4.4 3.5 (3.5-5.0) g/dL Calcium panel 05/29/23 05/30/23 05/30/23 Range/Units 19:50 01:06 04:55 Calcium 8.9 8.3 L (8.4-10.2) mg/dL Phosphorus 2.6 (2.5-4.5) mg/dL Albumin 4.4 3.5 (3.5-5.0) g/dL 05/30/23 Range/Units 08:10 Calcium 8.6 (8.4-10.2) mg/dL Phosphorus (2.5-4.5) mg/dL Albumin (3.5-5.0) g/dL Pituitary panel 05/29/23 05/30/23 05/30/23 Range/Units 19:50 04:55 08:10 Sodium 135 L 134 L 133 L (137-145) mmol/L Potassium 4.9 3.9 4.6 (3.5-5.1) mmol/L Chloride 107 109 H 109 H (98-107) mmol/L Carbon Dioxide <5 L* 7 L* <5 L* (22-30) mmol/L BUN 18 16 16 (9-20) mg/dL Creatinine 1.02 0.78 0.71 (0.66-1.25) mg/dL Glucose 144 H 105 H 100 H (74-99) mg/dL Calcium 8.9 8.3 L 8.6 (8.4-10.2) mg/dL Adrenal panel 05/29/23 05/30/23 05/30/23 Range/Units 19:50 04:55 08:10 Sodium 135 L 134 L 133 L (137-145) mmol/L Potassium 4.9 3.9 4.6 (3.5-5.1) mmol/L Chloride 107 109 H 109 H (98-107) mmol/L Carbon Dioxide <5 L* 7 L* <5 L* (22-30) mmol/L BUN 18 16 16 (9-20) mg/dL Creatinine 1.02 0.78 0.71 (0.66-1.25) mg/dL Glucose 144 H 105 H 100 H (74-99) mg/dL Calcium 8.9 8.3 L 8.6 (8.4-10.2) mg/dL Total Bilirubin 0.8 0.8 (0.2-1.3) mg/dL AST 21 18 (17-59) U/L ALT 17 15 (4-49) U/L Alkaline Phosphatase 66 60 (38-126) U/L Total Protein 7.5 6.2 L (6.3-8.2) g/dL Albumin 4.4 3.5 (3.5-5.0) g/dL - Imaging CT scan - abdomen: report reviewed, image reviewed CT scan - pelvis: report reviewed, image reviewed Assessment and Plan Assessment: Impression; abdominal pain probably non urologic. radiology reported kidney stones. history of reflux uropathy as a child on the right. Right renal lesion, hemorhhagic cyst v neoplasm Plan: the abdominal pain doesnt sound urologic. I reviewed the films and cant say that I see a ureteral stone. The right side ureter is slightly leslie than the left but this could be chronic based on a history of reflux uropathy. He has a renal lesion that will have to be worked up but is unrelated to the present admission. We will follow
[2023-05-30 13:30] LABS: Glucose,Whole Blood 118 mg/dL (70-110)
[2023-05-30 14:16] LABS: Glucose,Whole Blood 103 mg/dL (70-110)
[2023-05-30] MEDS: DOCUSATE 100 MG CAP PO SCH ×2 (15:11→18:04)
[2023-05-30] MEDS: polyethylene glycoL 3350 17 GM POWD.PACK PO SCH (15:11)
[2023-05-30 15:16] LABS: Glucose,Whole Blood 79 mg/dL (70-110)
[2023-05-30 16:34] LABS: African American GFR (CKD) >90 (>60 ml/min/1.73 sqM); Anion Gap 14 mmol/L; Blood Urea Nitrogen 14 mg/dL (9-20); Calcium 8.8 mg/dL (8.4-10.2); Chloride 114 mmol/L (98-107); Glucose 89 mg/dL (74-99); Non-African American GFR(CKD) >90 (>60 ml/min/1.73 sqM); Phosphorus 1.7 mg/dL (2.5-4.5); Potassium 3.9 mmol/L (3.5-5.1); Sodium 136 mmol/L (137-145)
[2023-05-30 16:34] LABS: Glucose,Whole Blood 94 mg/dL (70-110)
[2023-05-30 16:41] LABS: Carbon Dioxide 8 mmol/L (22-30)
[2023-05-30] MEDS ORDERED: POTASSIUM PHOSPHATE 10 MMOL in SODIUM CHLORIDE 0.9% 250 ML IV SCH (17:15)
[2023-05-30 17:31] LABS: Glucose,Whole Blood 103 mg/dL (70-110)
[2023-05-30] MEDS ORDERED: SODIUM PHOSPHATE 30 MMOL in DEXTROSE 5% IN WATER 250 ML IVPB ONE ×2 (18:00)
[2023-05-30 19:09] LABS: Glucose,Whole Blood 184 mg/dL (70-110)
[2023-05-30 20:23] LABS: Glucose,Whole Blood 214 mg/dL (70-110)
[2023-05-30 21:00] LABS: Glucose,Whole Blood 188 mg/dL (70-110)
[2023-05-30 21:03] LABS: African American GFR (CKD) >90 (>60 ml/min/1.73 sqM); Anion Gap 14 mmol/L; Blood Urea Nitrogen 12 mg/dL (9-20); Calcium 8.7 mg/dL (8.4-10.2); Chloride 111 mmol/L (98-107); Glucose 223 mg/dL (74-99); Non-African American GFR(CKD) >90 (>60 ml/min/1.73 sqM); Phosphorus 1.6 mg/dL (2.5-4.5); Potassium 3.6 mmol/L (3.5-5.1); Sodium 134 mmol/L (137-145)
[2023-05-30 21:06] LABS: Carbon Dioxide 9 mmol/L (22-30)
[2023-05-30 21:59] LABS: Glucose,Whole Blood 175 mg/dL (70-110)
[2023-05-30 23:04] LABS: Glucose,Whole Blood 160 mg/dL (70-110)
[2023-05-30 23:49] LABS: Glucose,Whole Blood 128 mg/dL (70-110)
[2023-05-31 01:01] LABS: Glucose,Whole Blood 117 mg/dL (70-110)
[2023-05-31 02:00] LABS: Glucose,Whole Blood 186 mg/dL (70-110)
[2023-05-31 02:04] LABS: African American GFR (CKD) >90 (>60 ml/min/1.73 sqM); Anion Gap 9 mmol/L; Blood Urea Nitrogen 11 mg/dL (9-20); Calcium 8.6 mg/dL (8.4-10.2); Carbon Dioxide 13 mmol/L (22-30); Chloride 112 mmol/L (98-107); Glucose 129 mg/dL (74-99); Non-African American GFR(CKD) >90 (>60 ml/min/1.73 sqM); Potassium 3.6 mmol/L (3.5-5.1); Sodium 134 mmol/L (137-145)
[2023-05-31] MEDS: INSULIN REGULAR 100 UNIT in SODIUM CHLORIDE 0.9% 100 ML IV SCH (02:29)
[2023-05-31 03:02] LABS: Glucose,Whole Blood 153 mg/dL (70-110)
[2023-05-31 04:00] LABS: Glucose,Whole Blood 173 mg/dL (70-110)
[2023-05-31 04:24] LABS: ALT 12 U/L (4-49); AST 14 U/L (17-59); African American GFR (CKD) >90 (>60 ml/min/1.73 sqM); Albumin 3.1 g/dL (3.5-5.0); Alkaline Phosphatase 58 U/L (38-126); Anion Gap 10 mmol/L; Blood Urea Nitrogen 10 mg/dL (9-20); Calcium 8.7 mg/dL (8.4-10.2); Carbon Dioxide 13 mmol/L (22-30); Chloride 111 mmol/L (98-107); Glucose 159 mg/dL (74-99); Non-African American GFR(CKD) >90 (>60 ml/min/1.73 sqM); Potassium 3.5 mmol/L (3.5-5.1); Sodium 134 mmol/L (137-145); Total Bilirubin 0.9 mg/dL (0.2-1.3); Total Protein 5.6 g/dL (6.3-8.2)
[2023-05-31 04:31] LABS: Basophils % (A) 0 %; Eosinophils # (A) 0.1 k/uL (0-0.7); Eosinophils % (A) 1 %; HCT 43.4 % (39.0-53.0); HGB 14.8 gm/dL (13.0-17.5); Lymphocytes # (A) 1.7 k/uL (1.0-4.8); Lymphocytes % (A) 20 %; MCH 31.4 pg (25.0-35.0); MCHC 34.2 g/dL (31.0-37.0); MCV 91.6 fL (80.0-100.0); Mean Platelet Volume 6.6; Monocytes # (A) 0.7 k/uL (0-1.0); Monocytes % (A) 8 %; Neutrophils # (A) 5.7 k/uL (1.3-7.7); Neutrophils % (A) 68 %; Platelet Count 321 k/uL (150-450); RBC 4.74 m/uL (4.30-5.90); RDW 13.2 % (11.5-15.5); WBC 8.4 k/uL (3.8-10.6)
[2023-05-31 05:04] LABS: Glucose,Whole Blood 182 mg/dL (70-110)
[2023-05-31 05:51] LABS: Glucose,Whole Blood 159 mg/dL (70-110)
[2023-05-31 06:49] LABS: Glucose,Whole Blood 137 mg/dL (70-110)
[2023-05-31 07:57] LABS: Glucose,Whole Blood 201 mg/dL (70-110)
[2023-05-31] MEDS: polyethylene glycoL 3350 17 GM POWD.PACK PO SCH (08:33)
[2023-05-31] MEDS: DOCUSATE 100 MG CAP PO SCH ×2 (08:33→20:54)
[2023-05-31] MEDS: ENOXAPARIN 40 MG/0.4 ML SYRINGE SQ SCH (08:33)
[2023-05-31] MEDS: D5-0.45% NACL WITH KCL 20MEQ/L 1,000 ML IV SCH (08:33)
[2023-05-31 09:06] LABS: Glucose,Whole Blood 211 mg/dL (70-110)
[2023-05-31] MEDS: POTASSIUM CHLORIDE ER 20 MEQ TAB.ER PO SCH ×2 (09:30→10:39)
[2023-05-31 10:05] LABS: Glucose,Whole Blood 148 mg/dL (70-110)
[2023-05-31 10:14] LABS: Anion Gap 9 mmol/L; Carbon Dioxide 14 mmol/L (22-30); Chloride 112 mmol/L (98-107); Magnesium 2.4 mg/dL (1.6-2.3); Phosphorus 1.2 mg/dL (2.5-4.5); Potassium 3.5 mmol/L (3.5-5.1); Sodium 135 mmol/L (137-145)
[2023-05-31 10:36] LABS: African American GFR (CKD) >90 (>60 ml/min/1.73 sqM); Blood Urea Nitrogen 7 mg/dL (9-20); Calcium 8.7 mg/dL (8.4-10.2); Glucose 170 mg/dL (74-99); Non-African American GFR(CKD) >90 (>60 ml/min/1.73 sqM)
[2023-05-31] MEDS: SODIUM BICARBONATE TAB 650 MG TAB PO SCH ×2 (10:39→20:54)
--- NOTE | 2023-05-31 11:22 | P.PN ---
Subjective Progress Note Date: 05/31/23 Pt is much better today, reports improvement in weakness, n/v. Still constipated, but appetite is significantly improved. Gen: awake, alert HEENT: normocephalic, atraumatic, good hearing acuity, moist mucous membranes Resp: good air exchange, breathing comfortably with no accessory muscle use CVS: good distal perfusion x 4, GI: soft, NTTP, ND : no SPT, no CVAT, elaine catheter not present MSK: no pitting edema, no clubbing Neuro: non-focal, moving all extremities Psych: cooperative, euthymic mood Assessment/plan: Euglycemic DKA High anion gap metabolic acidosis, resolved Metabolic derangements: hypokalemia, hypophosphatemia, - completed insulin gtt, switch to ACHS insulin aspart - pt was counseled on importance of stopping his steglatro (empugliflozin) outpatient - pending A1c - value will determine whether patient will require insulin on discharge if > 7.5, add insulin regimen SQ on discharge if < 7.5, patient can discharge on metformin, trulicity, and add glipizide to home regimen - advance to carb consistent diet today Non-anion gap metabolic acidosis - obtain urine electrolytes, urinalysis to evaluate for RTA - urine PH, K, Cl, Na, urea pending to calculate UGAP - add oral bicarb 650mg BID - repeat BMP, Mg Constipation - docusate BID, miralax daily - bisacodyl 10mg PRN suppository, administer today HTN - holding home HCTZ DVT prophylaxis: Heparin subq The patient is admitted with an anticipated greater than 2 midnight stay for evaluation of acidosis CODE STATUS: Full Code Discussed with: Patient Anticipated discharge place: Home Objective - Vital Signs Vital signs: Vital Signs Temp 98.1 F 05/31/23 08:18 Pulse 89 05/31/23 08:48 Resp 16 05/31/23 08:18 BP 150/76 05/31/23 08:18 Pulse Ox 98 05/31/23 08:18 FiO2 Intake & Output 05/30/23 05/31/23 05/31/23 18:59 06:59 18:59 Intake Total 13.911 8.280 0.441 Output Total 825 600 Balance 13.911 -816.720 -599.559 Weight 83.915 kg Intake: Intake, IV Titration 13.911 8.280 0.441 Amount Insulin Regular 100 unit 13.911 8.280 0.441 In Sodium Chloride 0.9% 100 ml @ 0.1 UNITS/KG/HR 8.475 mls/hr IV .[id number] [facility] Rx#:[id number] Oral 0 Output: Urine 825 600 Other: Voiding Method Urinal - Labs CBC & Chem 7: 05/31/23 03:37 05/31/23 09:47 Labs: Abnormal Lab Results - Last 24 Hours (Table) 05/30/23 05/30/23 05/30/23 Range/Units 11:13 11:46 11:46 ABG pH 7.26 L (7.35-7.45) ABG pCO2 <15 L* (35-45) mmHg ABG pO2 126 H (83-108) mmHg ABG O2 Saturation 98.8 H (94-97) % VBG pH 7.18 L* (7.31-7.41) VBG pCO2 21 L (37-51) mmHg VBG HCO3 8 L* (24-28) mmol/L Sodium 136 L (137-145) mmol/L Chloride 111 H (98-107) mmol/L Carbon Dioxide 6 L* (22-30) mmol/L Creatinine (0.66-1.25) mg/dL Glucose 108 H (74-99) mg/dL POC Glucose (mg/dL) (70-110) mg/dL Phosphorus (2.5-4.5) mg/dL Magnesium (1.6-2.3) mg/dL AST (17-59) U/L Total Protein (6.3-8.2) g/dL Albumin (3.5-5.0) g/dL 05/30/23 05/30/23 05/30/23 Range/Units 12:31 13:28 16:01 ABG pH (7.35-7.45) ABG pCO2 (35-45) mmHg ABG pO2 (83-108) mmHg ABG O2 Saturation (94-97) % VBG pH (7.31-7.41) VBG pCO2 (37-51) mmHg VBG HCO3 (24-28) mmol/L Sodium 136 L (137-145) mmol/L Chloride 114 H (98-107) mmol/L Carbon Dioxide 8 L* (22-30) mmol/L Creatinine (0.66-1.25) mg/dL Glucose (74-99) mg/dL POC Glucose (mg/dL) 140 H 118 H (70-110) mg/dL Phosphorus 1.7 L (2.5-4.5) mg/dL Magnesium (1.6-2.3) mg/dL AST (17-59) U/L Total Protein (6.3-8.2) g/dL Albumin (3.5-5.0) g/dL 05/30/23 05/30/23 05/30/23 Range/Units 19:07 20:01 20:10 ABG pH (7.35-7.45) ABG pCO2 (35-45) mmHg ABG pO2 (83-108) mmHg ABG O2 Saturation (94-97) % VBG pH (7.31-7.41) VBG pCO2 (37-51) mmHg VBG HCO3 (24-28) mmol/L Sodium 134 L (137-145) mmol/L Chloride 111 H (98-107) mmol/L Carbon Dioxide 9 L* (22-30) mmol/L Creatinine 0.65 L (0.66-1.25) mg/dL Glucose 223 H (74-99) mg/dL POC Glucose (mg/dL) 184 H 214 H (70-110) mg/dL Phosphorus 1.6 L (2.5-4.5) mg/dL Magnesium (1.6-2.3) mg/dL AST (17-59) U/L Total Protein (6.3-8.2) g/dL Albumin (3.5-5.0) g/dL 05/30/23 05/30/23 05/30/23 Range/Units 20:59 21:58 23:03 ABG pH (7.35-7.45) ABG pCO2 (35-45) mmHg ABG pO2 (83-108) mmHg ABG O2 Saturation (94-97) % VBG pH (7.31-7.41) VBG pCO2 (37-51) mmHg VBG HCO3 (24-28) mmol/L Sodium (137-145) mmol/L Chloride (98-107) mmol/L Carbon Dioxide (22-30) mmol/L Creatinine (0.66-1.25) mg/dL Glucose (74-99) mg/dL POC Glucose (mg/dL) 188 H 175 H 160 H (70-110) mg/dL Phosphorus (2.5-4.5) mg/dL Magnesium (1.6-2.3) mg/dL AST (17-59) U/L Total Protein (6.3-8.2) g/dL Albumin (3.5-5.0) g/dL 05/30/23 05/31/23 05/31/23 Range/Units 23:46 00:03 00:59 ABG pH (7.35-7.45) ABG pCO2 (35-45) mmHg ABG pO2 (83-108) mmHg ABG O2 Saturation (94-97) % VBG pH (7.31-7.41) VBG pCO2 (37-51) mmHg VBG HCO3 (24-28) mmol/L Sodium 134 L (137-145) mmol/L Chloride 112 H (98-107) mmol/L Carbon Dioxide 13 L (22-30) mmol/L Creatinine 0.65 L (0.66-1.25) mg/dL Glucose 129 H (74-99) mg/dL POC Glucose (mg/dL) 128 H 117 H (70-110) mg/dL Phosphorus (2.5-4.5) mg/dL Magnesium (1.6-2.3) mg/dL AST (17-59) U/L Total Protein (6.3-8.2) g/dL Albumin (3.5-5.0) g/dL 05/31/23 05/31/23 05/31/23 Range/Units 01:58 03:00 03:37 ABG pH (7.35-7.45) ABG pCO2 (35-45) mmHg ABG pO2 (83-108) mmHg ABG O2 Saturation (94-97) % VBG pH (7.31-7.41) VBG pCO2 (37-51) mmHg VBG HCO3 (24-28) mmol/L Sodium 134 L (137-145) mmol/L Chloride 111 H (98-107) mmol/L Carbon Dioxide 13 L (22-30) mmol/L Creatinine 0.62 L (0.66-1.25) mg/dL Glucose 159 H (74-99) mg/dL POC Glucose (mg/dL) 186 H 153 H (70-110) mg/dL Phosphorus (2.5-4.5) mg/dL Magnesium (1.6-2.3) mg/dL AST 14 L (17-59) U/L Total Protein 5.6 L (6.3-8.2) g/dL Albumin 3.1 L (3.5-5.0) g/dL 05/31/23 05/31/23 05/31/23 Range/Units 03:59 05:03 05:48 ABG pH (7.35-7.45) ABG pCO2 (35-45) mmHg ABG pO2 (83-108) mmHg ABG O2 Saturation (94-97) % VBG pH (7.31-7.41) VBG pCO2 (37-51) mmHg VBG HCO3 (24-28) mmol/L Sodium (137-145) mmol/L Chloride (98-107) mmol/L Carbon Dioxide (22-30) mmol/L Creatinine (0.66-1.25) mg/dL Glucose (74-99) mg/dL POC Glucose (mg/dL) 173 H 182 H 159 H (70-110) mg/dL Phosphorus (2.5-4.5) mg/dL Magnesium (1.6-2.3) mg/dL AST (17-59) U/L Total Protein (6.3-8.2) g/dL Albumin (3.5-5.0) g/dL 05/31/23 05/31/23 05/31/23 Range/Units 06:45 07:56 09:02 ABG pH (7.35-7.45) ABG pCO2 (35-45) mmHg ABG pO2 (83-108) mmHg ABG O2 Saturation (94-97) % VBG pH (7.31-7.41) VBG pCO2 (37-51) mmHg VBG HCO3 (24-28) mmol/L Sodium (137-145) mmol/L Chloride (98-107) mmol/L Carbon Dioxide (22-30) mmol/L Creatinine (0.66-1.25) mg/dL Glucose (74-99) mg/dL POC Glucose (mg/dL) 137 H 201 H 211 H (70-110) mg/dL Phosphorus (2.5-4.5) mg/dL Magnesium (1.6-2.3) mg/dL AST (17-59) U/L Total Protein (6.3-8.2) g/dL Albumin (3.5-5.0) g/dL 05/31/23 05/31/23 Range/Units 09:47 10:03 ABG pH (7.35-7.45) ABG pCO2 (35-45) mmHg ABG pO2 (83-108) mmHg ABG O2 Saturation (94-97) % VBG pH (7.31-7.41) VBG pCO2 (37-51) mmHg VBG HCO3 (24-28) mmol/L Sodium 135 L (137-145) mmol/L Chloride 112 H (98-107) mmol/L Carbon Dioxide 14 L (22-30) mmol/L Creatinine (0.66-1.25) mg/dL Glucose (74-99) mg/dL POC Glucose (mg/dL) 148 H (70-110) mg/dL Phosphorus 1.2 L (2.5-4.5) mg/dL Magnesium 2.4 H (1.6-2.3) mg/dL AST (17-59) U/L Total Protein (6.3-8.2) g/dL Albumin (3.5-5.0) g/dL
[2023-05-31 11:26] LABS: Glucose,Whole Blood 118 mg/dL (70-110)
--- NOTE | 2023-05-31 11:28 | P.PN ---
Subjective Progress Note Date: 05/31/23 The patient's in the hospital with abdominal pain that does not appear to be urologic. There is a question of ureteral calculi. Upon my review the x-ray do not believe he's had any. Does have a newly identified 2 cm right cortical lesion that is either a hemorrhagic cyst or a neoplasm. This is not related to this hospital admission will need to be follow-up. He should be seen in my office in a couple of weeks post hospitalization Objective - Vital Signs Vital signs: Vital Signs Temp 98.1 F 05/31/23 08:18 Pulse 89 05/31/23 11:14 Resp 16 05/31/23 11:14 BP 138/81 05/31/23 11:14 Pulse Ox 97 05/31/23 11:14 FiO2 Intake & Output 05/30/23 05/31/23 05/31/23 18:59 06:59 18:59 Intake Total 13.911 8.280 0.441 Output Total 825 600 Balance 13.911 -816.720 -599.559 Weight 83.915 kg Intake: Intake, IV Titration 13.911 8.280 0.441 Amount Insulin Regular 100 unit 13.911 8.280 0.441 In Sodium Chloride 0.9% 100 ml @ 0.1 UNITS/KG/HR 8.475 mls/hr IV .[id number] [facility] Rx#:[id number] Oral 0 Output: Urine 825 600 Other: Voiding Method Urinal - Labs CBC & Chem 7: 05/31/23 03:37 05/31/23 09:47 Labs: Abnormal Lab Results - Last 24 Hours (Table) 05/30/23 05/30/23 05/30/23 Range/Units 11:46 11:46 12:31 VBG pH 7.18 L* (7.31-7.41) VBG pCO2 21 L (37-51) mmHg VBG HCO3 8 L* (24-28) mmol/L Sodium 136 L (137-145) mmol/L Chloride 111 H (98-107) mmol/L Carbon Dioxide 6 L* (22-30) mmol/L BUN (9-20) mg/dL Creatinine (0.66-1.25) mg/dL Glucose 108 H (74-99) mg/dL POC Glucose (mg/dL) 140 H (70-110) mg/dL Phosphorus (2.5-4.5) mg/dL Magnesium (1.6-2.3) mg/dL AST (17-59) U/L Total Protein (6.3-8.2) g/dL Albumin (3.5-5.0) g/dL 05/30/23 05/30/23 05/30/23 Range/Units 13:28 16:01 19:07 VBG pH (7.31-7.41) VBG pCO2 (37-51) mmHg VBG HCO3 (24-28) mmol/L Sodium 136 L (137-145) mmol/L Chloride 114 H (98-107) mmol/L Carbon Dioxide 8 L* (22-30) mmol/L BUN (9-20) mg/dL Creatinine (0.66-1.25) mg/dL Glucose (74-99) mg/dL POC Glucose (mg/dL) 118 H 184 H (70-110) mg/dL Phosphorus 1.7 L (2.5-4.5) mg/dL Magnesium (1.6-2.3) mg/dL AST (17-59) U/L Total Protein (6.3-8.2) g/dL Albumin (3.5-5.0) g/dL 05/30/23 05/30/23 05/30/23 Range/Units 20:01 20:10 20:59 VBG pH (7.31-7.41) VBG pCO2 (37-51) mmHg VBG HCO3 (24-28) mmol/L Sodium 134 L (137-145) mmol/L Chloride 111 H (98-107) mmol/L Carbon Dioxide 9 L* (22-30) mmol/L BUN (9-20) mg/dL Creatinine 0.65 L (0.66-1.25) mg/dL Glucose 223 H (74-99) mg/dL POC Glucose (mg/dL) 214 H 188 H (70-110) mg/dL Phosphorus 1.6 L (2.5-4.5) mg/dL Magnesium (1.6-2.3) mg/dL AST (17-59) U/L Total Protein (6.3-8.2) g/dL Albumin (3.5-5.0) g/dL 1005/30/23 05/30/23 Range/Units 21:58 23:03 23:46 VBG pH (7.31-7.41) VBG pCO2 (37-51) mmHg VBG HCO3 (24-28) mmol/L Sodium (137-145) mmol/L Chloride (98-107) mmol/L Carbon Dioxide (22-30) mmol/L BUN (9-20) mg/dL Creatinine (0.66-1.25) mg/dL Glucose (74-99) mg/dL POC Glucose (mg/dL) 175 H 160 H 128 H (70-110) mg/dL Phosphorus (2.5-4.5) mg/dL Magnesium (1.6-2.3) mg/dL AST (17-59) U/L Total Protein (6.3-8.2) g/dL Albumin (3.5-5.0) g/dL 05/31/23 05/31/23 05/31/23 Range/Units 00:03 00:59 01:58 VBG pH (7.31-7.41) VBG pCO2 (37-51) mmHg VBG HCO3 (24-28) mmol/L Sodium 134 L (137-145) mmol/L Chloride 112 H (98-107) mmol/L Carbon Dioxide 13 L (22-30) mmol/L BUN (9-20) mg/dL Creatinine 0.65 L (0.66-1.25) mg/dL Glucose 129 H (74-99) mg/dL POC Glucose (mg/dL) 117 H 186 H (70-110) mg/dL Phosphorus (2.5-4.5) mg/dL Magnesium (1.6-2.3) mg/dL AST (17-59) U/L Total Protein (6.3-8.2) g/dL Albumin (3.5-5.0) g/dL 05/31/23 05/31/23 05/31/23 Range/Units 03:00 03:37 03:59 VBG pH (7.31-7.41) VBG pCO2 (37-51) mmHg VBG HCO3 (24-28) mmol/L Sodium 134 L (137-145) mmol/L Chloride 111 H (98-107) mmol/L Carbon Dioxide 13 L (22-30) mmol/L BUN (9-20) mg/dL Creatinine 0.62 L (0.66-1.25) mg/dL Glucose 159 H (74-99) mg/dL POC Glucose (mg/dL) 153 H 173 H (70-110) mg/dL Phosphorus (2.5-4.5) mg/dL Magnesium (1.6-2.3) mg/dL AST 14 L (17-59) U/L Total Protein 5.6 L (6.3-8.2) g/dL Albumin 3.1 L (3.5-5.0) g/dL 05/31/23 05/31/23 05/31/23 Range/Units 05:03 05:48 06:45 VBG pH (7.31-7.41) VBG pCO2 (37-51) mmHg VBG HCO3 (24-28) mmol/L Sodium (137-145) mmol/L Chloride (98-107) mmol/L Carbon Dioxide (22-30) mmol/L BUN (9-20) mg/dL Creatinine (0.66-1.25) mg/dL Glucose (74-99) mg/dL POC Glucose (mg/dL) 182 H 159 H 137 H (70-110) mg/dL Phosphorus (2.5-4.5) mg/dL Magnesium (1.6-2.3) mg/dL AST (17-59) U/L Total Protein (6.3-8.2) g/dL Albumin (3.5-5.0) g/dL 05/31/23 05/31/23 05/31/23 Range/Units 07:56 09:02 09:47 VBG pH (7.31-7.41) VBG pCO2 (37-51) mmHg VBG HCO3 (24-28) mmol/L Sodium 135 L (137-145) mmol/L Chloride 112 H (98-107) mmol/L Carbon Dioxide 14 L (22-30) mmol/L BUN 7 L (9-20) mg/dL Creatinine 0.54 L (0.66-1.25) mg/dL Glucose 170 H (74-99) mg/dL POC Glucose (mg/dL) 201 H 211 H (70-110) mg/dL Phosphorus 1.2 L (2.5-4.5) mg/dL Magnesium 2.4 H (1.6-2.3) mg/dL AST (17-59) U/L Total Protein (6.3-8.2) g/dL Albumin (3.5-5.0) g/dL 05/31/23 05/31/23 Range/Units 10:03 11:24 VBG pH (7.31-7.41) VBG pCO2 (37-51) mmHg VBG HCO3 (24-28) mmol/L Sodium (137-145) mmol/L Chloride (98-107) mmol/L Carbon Dioxide (22-30) mmol/L BUN (9-20) mg/dL Creatinine (0.66-1.25) mg/dL Glucose (74-99) mg/dL POC Glucose (mg/dL) 148 H 118 H (70-110) mg/dL Phosphorus (2.5-4.5) mg/dL Magnesium (1.6-2.3) mg/dL AST (17-59) U/L Total Protein (6.3-8.2) g/dL Albumin (3.5-5.0) g/dL
[2023-05-31] MEDS: INSULIN ASPART (NovoLOG) 100 UNIT/ML VIAL SQ SCH ×2 (11:29→16:50)
[2023-05-31 12:05] LABS: Appearance,Urine Clear (Clear); Bilirubin,Urine Negative (Negative); Blood,Urine Negative (Negative); Color,Urine Colorless; Glucose,Urine (UA) 4+ (Negative); Ketones,Urine 1+ (Negative); Leukocyte Esterase,Urine Negative (Negative); Nitrite,Urine Negative (Negative); Protein,Urine Negative (Negative); Specific Gravity,Urine 1.027 (1.001-1.035); Urobilinogen,Urine <2.0 mg/dL (<2.0)
[2023-05-31 16:40] LABS: Glucose,Whole Blood 132 mg/dL (70-110)
[2023-05-31 20:30] LABS: Glucose,Whole Blood 123 mg/dL (70-110)
[2023-05-31 23:01] LABS: Potassium,Urine Random 11.1 mmol/L (25.0-125.0)
[2023-06-01 00:07] VITALS: RESP 18
[2023-06-01 02:16] LABS: Glucose,Whole Blood 125 mg/dL (70-110)
[2023-06-01 06:24] LABS: Glucose,Whole Blood 114 mg/dL (70-110)
[2023-06-01] MEDS: INSULIN ASPART (NovoLOG) 100 UNIT/ML VIAL SQ SCH ×2 (06:28→12:17)
[2023-06-01] MEDS: ENOXAPARIN 40 MG/0.4 ML SYRINGE SQ SCH (08:38)
[2023-06-01] MEDS: SODIUM BICARBONATE TAB 650 MG TAB PO SCH (08:38)
[2023-06-01] MEDS: DOCUSATE 100 MG CAP PO SCH (08:38)
[2023-06-01] MEDS: polyethylene glycoL 3350 17 GM POWD.PACK PO SCH (08:38)
[2023-06-01 09:17] LABS: African American GFR (CKD) >90 (>60 ml/min/1.73 sqM); Anion Gap 8 mmol/L; Blood Urea Nitrogen 9 mg/dL (9-20); Calcium 8.8 mg/dL (8.4-10.2); Carbon Dioxide 18 mmol/L (22-30); Chloride 110 mmol/L (98-107); Glucose 182 mg/dL (74-99); Magnesium 2.3 mg/dL (1.6-2.3); Non-African American GFR(CKD) >90 (>60 ml/min/1.73 sqM); Potassium 3.4 mmol/L (3.5-5.1); Sodium 136 mmol/L (137-145)
[2023-06-01 09:29] LABS: Ethanol Negative (Negative); Isopropanol Negative (Negative)
[2023-06-01 11:03] VITALS: TEMP 98.1
[2023-06-01] MEDS ORDERED: POTASSIUM CHLORIDE ER 20 MEQ TAB.ER PO STA (11:08)
--- NOTE | 2023-06-01 11:26 | P.DS ---
Providers Date of admission: 05/30/23 05:46 Expected date of discharge: 06/01/23 Attending physician: Kaykay Choudhary MD Consults: 05/30/23 08:23 Consult Physician Routine Consulting Provider: Jaydon Razo Consult Reason/Comments: right hydronephrosis, ureteral calculus Do you want consulting provider notified?: Yes Primary care physician: Jayme Moore [facility] Hospital Course: Discharge Diagnosis: Euglycemic DKA High anion gap metabolic acidosis secondary to DKA, resolved Hypokalemia Echo phosphatemia Constipation Hypertension Leukocytosis, reactive and resolved. Hospital Course: Patient is a very pleasant 53-year-old male with a past medical history of Type 2 [id number] diabetes mellitus. He presented to the emergency department on 05/30/23 with a chief complaint of intractable abdominal pain, loss of appetite, generalized weakness, nausea, and vomiting. Patient reports the symptoms began shortly after taking his Steglatro (empugliflozin) for his diabetes. Upon arrival to the hospital patient underwent full evaluation. Initially patient found to have high anion gap metabolic acidosis with chloride of 107, bicarb less than 5, and anion gap was unable to be calculated. Blood glucose was 144. Lactic acid was 2.5. VBG showing pH of 7.18, pCO2 of 21, bicarbonate 8, and FiO2 of 21. ABG done completed showing pH of 7.26, pCO2 less than 15, pO2 of 126 with O2 sat of 98.8. Urinalysis was positive for protein, glucose, ketones, and blood and negative for infection. Urine acetone was positive at 20. CBC revealed leukocytosis with WBC count of 13.9. CT abdomen and pelvis was completed showing mild right hydronephrosis secondary ro ureteral calculus as well as nonobstructing left ureteral calculus without left-sided hydronephrosis. Patient was admitted under our services for Euglycemic DKA and high anion Metabolic acidosis. He was initially placed on insulin infusion and slowly weaned off. Patient had full resolution of presenting symptoms and reports feeling better than he has in months. He was evaluated by urologist secondary to CT findings of hydronephrosis. Urologist independently reviewed CT and independently identified a 2 cm right cortical lesion which could possibly be related to a hemorrhagic cyst or neoplasm. Urologist recommending patient will need to follow-up in his office in 2 weeks for further evaluation/testing. Hemoglobin A1c resulting at 7.4%. Steglatro (empugliflozin), hydrochlorothiazide, and Pioglitazone were discontinued and patient was started on glipizide 5 mg daily in addition to metformin 1000 mg twice daily and Trulicity 3 mg subcu weekly. Medically, patient is stable for discharge home at this time. He was educated thoroughly on medication changes and need to follow up outpatient with urologist in 2 weeks to rule out neoplastic process. Patient verbalized understanding and stable for discharge at this time. Physical exam: Patient seen and examined at bedside and denied having any complaints or concerns at this time, reports feeling better than he has in months. Vital signs reviewed and stable. General: Nontoxic, no distress and appears stated age. Derm: Skin warm and dry, normal coloration for ethnicity. Head: Atraumatic, normocephalic and symmetric. Eyes: EOMs intact, no lid lag, and anicteric sclera Mouth: no lip lesions, mucus membranes moist Cardiovascular: regular rate and rhythm with normal S1S2, no murmur, positive posterior tibial pulses bilaterally, and cap refill < 2 seconds. Lungs: Respirations even, regular, and unlabored on room air. Lungs CTA bilaterally, no rhonchi, no rales, no wheezing, and no accessory muscle usage. Abdominal: soft, nontender to palpation, no guarding, no appreciable organomegaly Ext: ROM intact. No gross muscle atrophy, no edema, no contractures Neuro: Speech clear, face symmetrical and CN II-XII grossly intact with no noted focal neuro deficits Psych: Alert and oriented to person, place, time, and situation. Appropriate and pleasant affect. A total of 38 minutes of time were spent preparing this complex discharge summary. Pt was discharged on 06/01/23 11:25 AM Patient was seen independently by Nurse Practitioner. This document was prepared using [employer] dictation software. Please allow for errors in scrum coach while rare they do occur. Bright Sierra NP rendered care for this patient independently, reviewed the findings and plan as documented in the note above. I did not physically speak with or examine the patient on this date. Patient Condition at Discharge: Stable Plan - Discharge Summary Discharge Rx Participant: No New Discharge Prescriptions: New glipiZIDE 5 mg PO DAILY 30 Days #30 tablet Docusate [Colace] 100 mg PO BID PRN #60 cap PRN Reason: Constipation polyethylene glycoL 3350 [Miralax] 17 gm PO DAILY 30 Days #30 packet Continue Ondansetron Odt [Zofran ODT] 4 mg PO Q6H PRN PRN Reason: Nausea amLODIPine [Norvasc] 10 mg PO DAILY Ergocalciferol (Vitamin D2) [Drisdol (50,000 Iu)] 1,250 mcg PO SA Omeprazole [PriLOSEC] 20 mg PO DAILY PRN PRN Reason: ACID REFLUX Dulaglutide [Trulicity] 3 mg SQ SA metFORMIN HCL 1,000 mg PO BID Atorvastatin [Lipitor] 40 mg PO DAILY Discontinued Ertugliflozin Pidolate [Steglatro] 5 mg PO DAILY hydroCHLOROthiazide [Hydrodiuril] 12.5 mg PO DAILY Pioglitazone HCl 30 mg PO DAILY Discharge Medication List Atorvastatin [Lipitor] 40 mg PO DAILY 05/30/23 [History] Dulaglutide [Trulicity] 3 mg SQ SA 05/30/23 [History] Ergocalciferol (Vitamin D2) [Drisdol (50,000 Iu)] 1,250 mcg PO SA 05/30/23 [History] Omeprazole [PriLOSEC] 20 mg PO DAILY PRN 05/30/23 [History] Ondansetron Odt [Zofran ODT] 4 mg PO Q6H PRN 05/30/23 [History] amLODIPine [Norvasc] 10 mg PO DAILY 05/30/23 [History] metFORMIN HCL 1,000 mg PO BID 05/30/23 [History] Docusate [Colace] 100 mg PO BID PRN #60 cap 06/01/23 [Rx] glipiZIDE 5 mg PO DAILY 30 Days #30 tablet 06/01/23 [Rx] polyethylene glycoL 3350 [Miralax] 17 gm PO DAILY 30 Days #30 packet 06/01/23 [Rx] Follow up Appointment(s)/Referral(s): Jayme Andrew MD [Primary Care Provider] - 1-2 days Jaydon Razo MD [STAFF PHYSICIAN] - 2 Weeks Patient Instructions/Handouts: Metabolic Acidosis (GEN) Activity/Diet/Wound Care/Special Instructions: Activity: As tolerated. Take breaks as needed. Diet: Heart healthy and carb consistent diet. Avoid salts, or foods with hidden salts such as canned or boxed foods and frozen dinners. Extra salt makes your heart work harder and traps the fluid in your body for longer. Special Instructions: Take all of your medications as directed and remember to keep all of your doctor's appointments and follow-up as needed. As we discussed at bedside, it is important for you to follow up with urologist in 2 weeks regarding the finding on your CT showing concerns of a possible lesion/cyst. It is important to follow up to determine the exact cause of this finding and if needed further treatment/testing. Steglatro (empugliflozin), hydrochlorothiazide, and Pioglitazone were discontinued and you were started on glipizide 5 mg daily. Your hemoglobin A1c was 7.4%, it is important to follow-up carb consistent diet to obtain better control of your glucose levels. Please monitor your blood glucose levels daily and document these findings and a daily log to bring with you to your next doctor's appointment as your new medication dose may be titrated to assist in obtaining optimal blood glucose control. Thank you for allowing us to participate in your care, it was truly a pleasure having you for our patient!!! Discharge Disposition: HOME SELF-CARE
[2023-06-01 11:46] LABS: Glucose,Whole Blood 106 mg/dL (70-110)
[2023-06-01 12:36] VITALS: BMI 29.0
[2023-06-01 12:52] VITALS: BP 142/80; PULSE 107
== END 2023-06-01 14:31 | disposition home or self-care (01) | DRG 638 ==
LOC: EC 16:40 → 3SCARD 05-30 05:46
PROVIDERS: ADMIT Internal Medicine; ATTEND Internal Medicine
DX: E11.10 Type 2 diabetes mellitus with ketoacidosis without coma (principal); E87.4 Mixed disorder of acid-base balance; R63.0 Anorexia; T73.0XXA Starvation, initial encounter; I10 Essential (primary) hypertension; E78.5 Hyperlipidemia, unspecified; E83.39 Other disorders of phosphorus metabolism; E86.0 Dehydration; E87.6 Hypokalemia; X58.XXXA Exposure to other specified factors, initial encounter; K59.00 Constipation, unspecified; K76.0 Fatty (change of) liver, not elsewhere classified; Z79.84 Long term (current) use of oral hypoglycemic drugs; Z79.85 Long-term (current) use of injectable non-insulin antidiabetic drugs; Z79.899 Other long term (current) drug therapy; Z87.442 Personal history of urinary calculi; Z87.19 Personal history of other diseases of the digestive system
CPT/HCPCS: 36415; 36600; 74177; 80048; 80051; 80053; 80143; 80179; 80320; 81001; 81003; 82009; 82150; 82565; 82803; 82805; 82947; 83036; 83605; 83690; 83735; 83930; 84100; 84133; 84300; 84520; 84540; 84600; 85025; 85027; 93005; 96361; 96372; 96374; 96375; 99291